=== PATIENT | female | born 1990 | race Hispanic/Latino ===

== ENCOUNTER 2025-07-11 19:19 | Emergency (ER) | payer OTHER, SELFPAY ==
[2025-07-11 19:24] VITALS: BP 168/116
[2025-07-11 20:23] VITALS: BP 160/111
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
== END 2025-07-11 21:15 | disposition home or self-care (01) ==
LOC: EMR 19:19
PROVIDERS: EMERGENCY PHYSICIAN Emergency Medicine
DX: T75.4XXA Electrocution, initial encounter (principal); W86.8XXA Exposure to other electric current, initial encounter; Y92.000 Kitchen of unspecified non-institutional (private) residence as the place of occurrence of the external cause; I10 Essential (primary) hypertension
CPT/HCPCS: 99283; 93005